=== PATIENT | male | born 1950 | race Caucasian/White ===

== ENCOUNTER 2017-10-16 18:11 | Inpatient (IN) | payer MEDICARE, OTHER ==
[~2017-10-16] VITALS: Ht 182.9 cm; Wt 97.0 kg
[2017-10-16 18:54] VITALS: BP 114/65
[2017-10-16 19:44] LABS: BASOPHILS 0.4 % (0-2); EOSINOPHILS 4.2 % (0-7); HEMATOCRIT 30.4 % (42.0-54.0); HEMOGLOBIN 10.1 g/dL (13.5-17.5); IMMATURE GRANULOCYTES 0.7 % (0-5); LYMPHOCYTES 15.3 % (15-50); MCH 32.9 pg (26.0-34.0); MCHC 33.2 g/dL (31.0-37.0); MEAN PLATELET VOLUME 9.2 fL (7.4-10.4); MONOCYTES 15.3 % (2-11); NEUTROPHILS 64.1 % (40-80); PLATELET COUNT 276 10x3/uL (130-400); RBC 3.07 10x6/uL (4.20-6.10); RDW 13.6 % (11.5-14.5); WBC 7.3 10x3/uL (4.8-10.8)
[2017-10-16 20:04] LABS: ALBUMIN 2.6 g/dL (3.4-5.0); ANION GAP 13.2 mmol/L (8-16); BILIRUBIN - TOTAL 0.21 mg/dL (0.2-1.3); CALCIUM 9.5 mg/dL (8.5-10.1); CARBON DIOXIDE 28.5 mmol/L (21.0-32.0); CREATININE - SERUM 1.8 mg/dL (0.6-1.3); POTASSIUM - SERUM 3.7 mmol/L (3.5-5.1); PROTEIN - SERUM 7.3 g/dL (6.4-8.2)
[2017-10-16 23:00] VITALS: BP 101/58
[2017-10-17] VITALS (7 sets, daily range): BP systolic 97–116; BP diastolic 54–65; Ht 182.9 cm; Wt 97.0 kg
[2017-10-17] MEDS ORDERED: TESSALON PERLE100 MG PO (00:57)
[2017-10-17] MEDS ORDERED: PROAIR HFA8.5 GM INH (00:58)
[2017-10-17] MEDS ORDERED: BUPROPION XL300 MG PO (00:58)
[2017-10-17] MEDS ORDERED: TRAZODONE HCL50 MG PO (00:59)
[2017-10-17] MEDS ORDERED: ATIVAN1 MG PO (01:00)
[2017-10-17] MEDS ORDERED: ZOVIRAX400 MG PO (01:01)
[2017-10-17] MEDS ORDERED: AUGMENTIN 500-11 TA1 PO (01:02)
[2017-10-17 05:49] LABS: BASOPHILS 0.5 % (0-2); EOSINOPHILS 3.4 % (0-7); HEMOGLOBIN 9.8 g/dL (13.5-17.5); IMMATURE GRANULOCYTES 0.7 % (0-5); LYMPHOCYTES 12.6 % (15-50); MCH 32.6 pg (26.0-34.0); MCHC 32.7 g/dL (31.0-37.0); MCV 99.7 fL (80.0-100.0); MEAN PLATELET VOLUME 9.4 fL (7.4-10.4); MONOCYTES 14.6 % (2-11); NEUTROPHILS 68.2 % (40-80); PLATELET COUNT 281 10x3/uL (130-400); RBC 3.01 10x6/uL (4.20-6.10); RDW 13.5 % (11.5-14.5); WBC 8.4 10x3/uL (4.8-10.8)
[2017-10-17 06:18] LABS: ALBUMIN 2.3 g/dL (3.4-5.0); ANION GAP 12.9 mmol/L (8-16); BILIRUBIN - TOTAL 0.2 mg/dL (0.2-1.3); CALCIUM 8.8 mg/dL (8.5-10.1); CARBON DIOXIDE 27.9 mmol/L (21.0-32.0); CREATININE - SERUM 1.4 mg/dL (0.6-1.3); MAGNESIUM - SERUM 1.8 mg/dL (1.8-2.4); PHOSPHOROUS 3.8 mg/dL (2.5-4.9); POTASSIUM - SERUM 4.8 mmol/L (3.5-5.1); PROTEIN - SERUM 6.7 g/dL (6.4-8.2)
[2017-10-17 12:07] LABS: CREATININE - URINE 45.3 mg/dL (30-125); POTASSIUM - URINE 22.4 MMOL/L (12.0-62.0); PROTEIN - URINE 26.8 mg/dL (0.0-11.9)
[2017-10-17 12:27] LABS: APPEARANCE CLEAR (CLEAR); COLOR YELLOW (YELLOW)
[2017-10-17 12:28] LABS: BILIRUBIN NEGATIVE (NEGATIVE); GLUCOSE NEGATIVE (NEGATIVE); KETONE NEGATIVE (NEGATIVE); NITRITE NEGATIVE (NEGATIVE); PROTEIN NEGATIVE (NEGATIVE); UROBILINOGEN NORMAL (NORMAL)
[2017-10-17 12:30] LABS: BACTERIA FEW /hpf (NONE SEEN); MUCUS <1+ /lpf (NONE SEEN); RED CELLS - URINE OCC /hpf (0-5); WHITE CELLS - URINE RARE /hpf (0-5)
[2017-10-17 12:31] LABS: EPITHELIAL CELLS RARE /hpf (0-5)
[2017-10-18 02:54] VITALS: BP 125/69
[2017-10-18 04:39] LABS: BASOPHILS 0.2 % (0-2); EOSINOPHILS 3.3 % (0-7); HEMATOCRIT 29.6 % (42.0-54.0); HEMOGLOBIN 9.8 g/dL (13.5-17.5); LYMPHOCYTES 9.5 % (15-50); MCH 32.7 pg (26.0-34.0); MCHC 33.1 g/dL (31.0-37.0); MCV 98.7 fL (80.0-100.0); MEAN PLATELET VOLUME 9.4 fL (7.4-10.4); PLATELET COUNT 277 10x3/uL (130-400); RDW 13.6 % (11.5-14.5)
[2017-10-18 05:04] LABS: ANION GAP 14.2 mmol/L (8-16); CALCIUM 8.6 mg/dL (8.5-10.1); CREATININE - SERUM 1.3 mg/dL (0.6-1.3); POTASSIUM - SERUM 4.2 mmol/L (3.5-5.1)
[2017-10-18 05:31] VITALS: BP 112/48
[2017-10-18 07:57] VITALS: BP 110/68
[2017-10-18 12:16] LABS: OSMOLALITY - URINE 330 (())
[2017-10-18 12:30] VITALS: BP 120/60
[2017-10-18 16:33] VITALS: BP 119/47
[2017-10-18 23:32] VITALS: BP 118/64
[2017-10-19 04:00] VITALS: BP 116/64
[2017-10-19 05:47] LABS: BASOPHILS 0.2 % (0-2); EOSINOPHILS 2.3 % (0-7); HEMATOCRIT 29.1 % (42.0-54.0); HEMOGLOBIN 9.7 g/dL (13.5-17.5); IMMATURE GRANULOCYTES 1.1 % (0-5); LYMPHOCYTES 12.5 % (15-50); MCH 32.8 pg (26.0-34.0); MCHC 33.3 g/dL (31.0-37.0); MCV 98.3 fL (80.0-100.0); MEAN PLATELET VOLUME 9.1 fL (7.4-10.4); MONOCYTES 12.8 % (2-11); NEUTROPHILS 71.1 % (40-80); PLATELET COUNT 261 10x3/uL (130-400); RBC 2.96 10x6/uL (4.20-6.10); RDW 13.7 % (11.5-14.5); WBC 9.6 10x3/uL (4.8-10.8)
[2017-10-19 06:11] LABS: APTT 36.7 SECONDS (22.8-39.4); INR 1.21 (0.85-1.17); PROTIME 14.9 SECONDS (11.6-15.0)
[2017-10-19 06:15] LABS: ANION GAP 12.3 mmol/L (8-16); CALCIUM 8.7 mg/dL (8.5-10.1); CARBON DIOXIDE 27.8 mmol/L (21.0-32.0); CREATININE - SERUM 1.2 mg/dL (0.6-1.3); POTASSIUM - SERUM 4.1 mmol/L (3.5-5.1)
[2017-10-19 07:59] VITALS: BP 115/66
[2017-10-19 12:19] LABS: ANA REFLEX - DIRECT Negative (Negative)
[2017-10-19 12:31] VITALS: BP 99/60
[2017-10-19 14:08] LABS: MACROPHAGES BF 20 %; MESOTHELIALS BF 17 %; NEUT - BF 25 %
[2017-10-19 16:19] VITALS: BP 118/62
[2017-10-19 21:39] VITALS: BP 114/65
[2017-10-20 00:15] VITALS: BP 116/64
[2017-10-20 04:00] VITALS: BP 111/61
[2017-10-20 05:44] LABS: BASOPHILS 0.2 % (0-2); EOSINOPHILS 3.2 % (0-7); HEMATOCRIT 29.4 % (42.0-54.0); HEMOGLOBIN 9.4 g/dL (13.5-17.5); IMMATURE GRANULOCYTES 1.2 % (0-5); LYMPHOCYTES 10.7 % (15-50); MCH 32.1 pg (26.0-34.0); MEAN PLATELET VOLUME 9.1 fL (7.4-10.4); MONOCYTES 12.5 % (2-11); NEUTROPHILS 72.2 % (40-80); PLATELET COUNT 247 10x3/uL (130-400); RBC 2.93 10x6/uL (4.20-6.10); RDW 13.9 % (11.5-14.5); WBC 10.3 10x3/uL (4.8-10.8)
[2017-10-20 05:50] LABS: MCV 100.3 fL (80.0-100.0)
[2017-10-20 06:01] LABS: ANION GAP 9.3 mmol/L (8-16); CALCIUM 8.5 mg/dL (8.5-10.1); CARBON DIOXIDE 29.8 mmol/L (21.0-32.0); CREATININE - SERUM 1.5 mg/dL (0.6-1.3); POTASSIUM - SERUM 4.1 mmol/L (3.5-5.1)
[2017-10-20 08:21] LABS: ANTI-GLOMERULAR BASMENT MEMBRN 3 units (0-20)
[2017-10-20 08:54] VITALS: BP 105/64
[2017-10-20 11:42] VITALS: BP 114/72
[2017-10-20 13:17] LABS: FUNGUS STAIN Final report (())
[2017-10-20 14:20] LABS: LEGIONELLA ANTIGEN - URINE Negative (Negative)
[2017-10-20 16:15] LABS: ACID FAST SMEAR Negative (()); AFB SPECIMEN PROCESSING Concentration (())
[2017-10-20 16:30] VITALS: BP 116/67
[2017-10-20 23:18] VITALS: BP 124/69
[2017-10-21 02:11] VITALS: BP 107/61
[2017-10-21 03:11] LABS: MYCOPLASMA PNEUMO IGG <100 U/mL (0-99)
[2017-10-21 04:56] VITALS: BP 127/73
[2017-10-21 05:53] LABS: BASOPHILS 0.3 % (0-2); EOSINOPHILS 3.4 % (0-7); HEMATOCRIT 29.3 % (42.0-54.0); HEMOGLOBIN 9.5 g/dL (13.5-17.5); IMMATURE GRANULOCYTES 1.4 % (0-5); LYMPHOCYTES 9.5 % (15-50); MCH 32.2 pg (26.0-34.0); MCHC 32.4 g/dL (31.0-37.0); MCV 99.3 fL (80.0-100.0); MEAN PLATELET VOLUME 9.2 fL (7.4-10.4); MONOCYTES 12.3 % (2-11); NEUTROPHILS 73.1 % (40-80); PLATELET COUNT 270 10x3/uL (130-400); RBC 2.95 10x6/uL (4.20-6.10); RDW 13.7 % (11.5-14.5); WBC 9.4 10x3/uL (4.8-10.8)
[2017-10-21 06:13] LABS: ANION GAP 11.5 mmol/L (8-16); CARBON DIOXIDE 28.4 mmol/L (21.0-32.0); CREATININE - SERUM 1.3 mg/dL (0.6-1.3); POTASSIUM - SERUM 3.9 mmol/L (3.5-5.1)
[2017-10-21 09:24] VITALS: BP 92/45
[2017-10-21 12:48] VITALS: BP 100/56
[2017-10-21 16:10] VITALS: BP 100/54
[2017-10-21 22:20] VITALS: BP 112/62
[2017-10-22 01:15] VITALS: BP 106/50
[2017-10-22 05:05] VITALS: BP 112/66
[2017-10-22 05:31] LABS: BASOPHILS 0.2 % (0-2); EOSINOPHILS 2.7 % (0-7); HEMATOCRIT 29.7 % (42.0-54.0); HEMOGLOBIN 9.7 g/dL (13.5-17.5); IMMATURE GRANULOCYTES 1.1 % (0-5); LYMPHOCYTES 8.3 % (15-50); MCH 32.1 pg (26.0-34.0); MCHC 32.7 g/dL (31.0-37.0); MCV 98.3 fL (80.0-100.0); MONOCYTES 11.7 % (2-11); PLATELET COUNT 261 10x3/uL (130-400); RBC 3.02 10x6/uL (4.20-6.10); RDW 13.6 % (11.5-14.5); WBC 10.6 10x3/uL (4.8-10.8)
[2017-10-22 06:09] LABS: ANION GAP 11.8 mmol/L (8-16); CALCIUM 8.6 mg/dL (8.5-10.1); CARBON DIOXIDE 28.4 mmol/L (21.0-32.0); CREATININE - SERUM 1.3 mg/dL (0.6-1.3); POTASSIUM - SERUM 4.2 mmol/L (3.5-5.1)
[2017-10-22 07:56] VITALS: BP 109/62
[2017-10-22 12:01] VITALS: BP 116/62
[2017-10-22 12:08] LABS: FUNGAL - ASP FLAVUS Negative (Neg:<1:1); FUNGAL - ASP NIGER Negative (Neg:<1:1); FUNGAL - ASPER FUMIGATUS Negative (Neg:<1:1)
[2017-10-22 16:16] VITALS: BP 96/49
[2017-10-22 22:26] VITALS: BP 100/56
[2017-10-23 01:39] VITALS: BP 101/61
[2017-10-23 05:15] VITALS: BP 99/56
[2017-10-23 08:37] VITALS: BP 96/57
[2017-10-23 11:47] VITALS: BP 105/59
[2017-10-23 12:11] LABS: ANCA - ANTIMYELOPEROXIDASE <9.0 U/mL (0.0-9.0); ANCA - ANTIPROTEINASE 3 <3.5 U/mL (0.0-3.5); ANCA - ATYPICAL <1:20 titer (Neg:<1:20); ANCA - CYTOPLASMIC <1:20 titer (Neg:<1:20); ANCA - PERINUCLEAR <1:20 titer (Neg:<1:20)
[2017-10-23 12:38] LABS: BASOPHILS 0.3 % (0-2); HEMATOCRIT 29.7 % (42.0-54.0); HEMOGLOBIN 9.6 g/dL (13.5-17.5); IMMATURE GRANULOCYTES 1.3 % (0-5); MCH 32.1 pg (26.0-34.0); MCHC 32.3 g/dL (31.0-37.0); MCV 99.3 fL (80.0-100.0); MEAN PLATELET VOLUME 8.9 fL (7.4-10.4); MONOCYTES 10.3 % (2-11); NEUTROPHILS 75.1 % (40-80); PLATELET COUNT 246 10x3/uL (130-400); RBC 2.99 10x6/uL (4.20-6.10); RDW 13.6 % (11.5-14.5); WBC 11.8 10x3/uL (4.8-10.8)
[2017-10-23 13:05] LABS: ALBUMIN 2.2 g/dL (3.4-5.0); ANION GAP 10.7 mmol/L (8-16); BILIRUBIN - TOTAL 0.3 mg/dL (0.2-1.3); CALCIUM 8.6 mg/dL (8.5-10.1); CARBON DIOXIDE 29.5 mmol/L (21.0-32.0); CREATININE - SERUM 1.4 mg/dL (0.6-1.3); POTASSIUM - SERUM 4.2 mmol/L (3.5-5.1); PROTEIN - SERUM 6.8 g/dL (6.4-8.2)
[2017-10-23 15:50] VITALS: BP 110/56
[2017-10-23 22:21] VITALS: BP 103/57
[2017-10-24 00:56] VITALS: BP 105/54
== END 2017-10-24 03:17 | disposition short-term general hospital (02) | DRG 166 ==
LOC: D.MS 18:11
PROVIDERS: Family Medicine; Internal Medicine Nephrology; Internal Medicine Pulmonary Disease
PROC: 0B9B8ZZ Drainage of Left Lower Lobe Bronchus, Via Natural or Artificial Opening Endoscopic (ICD-10-PCS; 2017-10-19)
PROC: 0B948ZZ Drainage of Right Upper Lobe Bronchus, Via Natural or Artificial Opening Endoscopic (ICD-10-PCS; 2017-10-19)
PROC: 0B988ZZ Drainage of Left Upper Lobe Bronchus, Via Natural or Artificial Opening Endoscopic (ICD-10-PCS; 2017-10-19)
PROC: 0B968ZZ Drainage of Right Lower Lobe Bronchus, Via Natural or Artificial Opening Endoscopic (ICD-10-PCS; 2017-10-19)
PROC: 0B9D8ZX Drainage of Right Middle Lung Lobe, Via Natural or Artificial Opening Endoscopic, Diagnostic (ICD-10-PCS; principal; 2017-10-19 11:00)
DX: J96.01 Acute respiratory failure with hypoxia (principal); J15.6 Pneumonia due to other Gram-negative bacteria; J15.212 Pneumonia due to Methicillin resistant Staphylococcus aureus; J44.0 Chronic obstructive pulmonary disease with (acute) lower respiratory infection; J84.9 Interstitial pulmonary disease, unspecified; C92.01 Acute myeloblastic leukemia, in remission; N17.9 Acute kidney failure, unspecified; J44.1 Chronic obstructive pulmonary disease with (acute) exacerbation; R09.02 Hypoxemia; J31.0 Chronic rhinitis; J61 Pneumoconiosis due to asbestos and other mineral fibers; D64.9 Anemia, unspecified; I25.10 Atherosclerotic heart disease of native coronary artery without angina pectoris; Z95.1 Presence of aortocoronary bypass graft; Z87.891 Personal history of nicotine dependence